=== PATIENT | female | born 1955 | race Caucasian/White ===

== ENCOUNTER 2017-10-10 22:46 | Inpatient (IN) | payer MEDICARE, OTHER ==
[~2017-10-10] VITALS: Ht 157.5 cm; Wt 68.5 kg
[2017-10-11 00:09] LABS: White Blood Cell 12.9 10^3/uL (4.4-10.8)
[2017-10-11 00:10] LABS: Hematocrit 33.9 % (36.0-46.0); Hemoglobin 10.6 g/dL (12.2-16.2); Mean Corpuscular Hemoglobin 25.5 pg (28.0-32.0); Mean Corpuscular Hgb Conc. 31.4 g/dL (32.0-36.0); Mean Corpuscular Volume 81.2 fL (80.0-100.0); Platelet Count (auto) 264 10^3/uL (140-450); Red Blood Cells 4.17 10^6/uL (4.0-5.20)
[2017-10-11 00:18] LABS: Red Cell Distribution Width 20.3 % (11.8-14.3)
[2017-10-11 00:19] LABS: Basophils % (manual) 0 (0.0-2.0); Blast Cells 0; Metamyelocytes % 0; Myelocytes % 0; Promyelocytes % 0; Reactive Lymphocytes 0
[2017-10-11 00:31] LABS: BUN/Creatinine Ratio 7.7; Calcium 8.5 mg/dL (8.5-10.1); Magnesium 2.4 mg/dL (1.6-2.6); Potassium 3.8 mmol/L (3.5-5.1)
[2017-10-11 00:55] LABS: Band Neutrophils % (manual) 2; Eosinophils % (manual) 6 (0-7); Lymphocytes % (manual) 16 (10.0-50.0); Monocytes % (manual) 14 (0-12)
[2017-10-11] MEDS ORDERED: FAMOTIDINE (10MG/ML) 2ML VL IV ONE (01:30)
[2017-10-11] MEDS ORDERED: SODIUM CHLORIDE 0.9% 1,000 ML IV ONE (01:30)
[2017-10-11] MEDS ORDERED: MEPERIDINE HCL (50 MG/ML) 1 ML VIAL IV ONE ×3 (01:30→14:00)
[2017-10-11 03:33] LABS: Urine Bacteria NONE SEEN /hpf (None Seen); Urine Blood 2+ /uL (Negative); Urine Budding Yeast LOADED /hpf (None Seen); Urine Hyaline Cast MOD /lpf (0 - 2); Urine Specific Gravity 1.026 (1.001-1.035); Urine WBC 1839 /hpf (0 - 5); Urine WBC Clumps PRESENT /hpf (None Seen)
[2017-10-11] MEDS ORDERED: MORPHINE SULF(PF) 0.5MG/ML 10ML VIAL IV PRN (09:00)
[2017-10-11] MEDS ORDERED: NITROGLYCERIN 0.4 MG SL TAB SL PRN (09:00)
[2017-10-11] MEDS ORDERED: DEXTROSE (50%) 50ML SYRG IV PRN (10:45)
[2017-10-11] MEDS: InsuLIN REG 1unit/0.01ml Soln (100units/ml) SC SCH ×3 (11:30→21:48)
[2017-10-11] MEDS: ACCU-CHEK COMFORT CURVE STRIP VI SCH ×3 (11:45→21:48)
[2017-10-11] MEDS ORDERED: ONDANSETRON HCL 4 MG/2 ML VIAL ONE (13:43)
[2017-10-11] MEDS ORDERED: ONDANSETRON HCL 4 MG/2 ML VIAL IV ONE (14:00)
[2017-10-11] MEDS: ONDANSETRON HCL 4 MG/2 ML VIAL IV PRN ×2 (16:37→21:49)
[2017-10-11] MEDS: OXYCODONE W/ ACETAMINOPHEN 5/325MG TABLET PO PRN ×2 (16:39→21:49)
[2017-10-11] MEDS: ENOXAPARIN SOD 30 MG/0.3 ML SYRINGE SC SCH (18:18)
[2017-10-11] MEDS: DOCUSATE SOD 100 MG CAP PO SCH (21:48)
[2017-10-11 22:00] VITALS: BP 116/61
[2017-10-11] MEDS ORDERED: POLYETHYLENE GLYCOL 17 GM PWDR PO ONE (22:00)
[2017-10-11] MEDS: ZOLPIDEM TARTRATE 5 MG TAB PO PRN (23:05)
[2017-10-12] MEDS: ONDANSETRON HCL 4 MG/2 ML VIAL IV PRN ×3 (04:12→19:49)
[2017-10-12 05:00] VITALS: BP 150/73
[2017-10-12] MEDS: OXYCODONE W/ ACETAMINOPHEN 5/325MG TABLET PO PRN ×4 (06:17→19:49)
[2017-10-12] MEDS: ACCU-CHEK COMFORT CURVE STRIP VI SCH ×4 (06:17→22:14)
[2017-10-12] MEDS: InsuLIN REG 1unit/0.01ml Soln (100units/ml) SC SCH ×4 (06:17→22:21)
[2017-10-12 09:00] VITALS: BP_SYST 131; BP_SYST 155; BP_DIAS 71; BP_DIAS 97
[2017-10-12] MEDS: DOCUSATE SOD 100 MG CAP PO SCH ×2 (10:52→22:13)
[2017-10-12 13:00] VITALS: BP_SYST 164; BP_SYST 88; BP_DIAS 47; BP_DIAS 72
[2017-10-12] MEDS ORDERED: LEVOFLOXACIN 250MG 50 ML IV SCH (13:30)
[2017-10-12] MEDS ORDERED: LEVOFLOXACIN 250MG 50 ML IV ONE (13:30)
[2017-10-12] MEDS ORDERED: LEVOFLOXACIN 500MG 100 ML IV ONE (14:00)
[2017-10-12] MEDS: B-COMPLEX W/ C & FOLIC ACID(NEPHROVITE TAB) PO SCH (14:27)
[2017-10-12 17:00] VITALS: BP 145/79
[2017-10-12] MEDS: Novasource Renal 8 Ounces PO SCH (19:48)
[2017-10-12] MEDS: ENOXAPARIN SOD 30 MG/0.3 ML SYRINGE SC SCH (19:49)
[2017-10-12 22:00] VITALS: BP 166/74
[2017-10-13] MEDS: ONDANSETRON HCL 4 MG/2 ML VIAL IV PRN ×6 (00:11→22:03)
[2017-10-13] MEDS: OXYCODONE W/ ACETAMINOPHEN 5/325MG TABLET PO PRN ×6 (00:11→22:03)
[2017-10-13] MEDS: ZOLPIDEM TARTRATE 5 MG TAB PO PRN ×2 (00:30→22:02)
[2017-10-13 05:16] VITALS: BP 160/85
[2017-10-13] MEDS: ACCU-CHEK COMFORT CURVE STRIP VI SCH ×4 (07:04→22:02)
[2017-10-13] MEDS: InsuLIN REG 1unit/0.01ml Soln (100units/ml) SC SCH ×5 (07:05→22:14)
[2017-10-13 07:56] LABS: Basophils # (auto) 0 uL; Eosinophils % (auto) 4.2 % (0.0-7.0); Hematocrit 30.2 % (36.0-46.0); Mean Corpuscular Hemoglobin 26.3 pg (28.0-32.0); Monocytes % (auto) 9.3 % (0.0-12.0)
[2017-10-13 07:59] LABS: Basophils % (auto) 0.2 % (0.0-2.0); Eosinophils # (auto) 0.5 uL; Hemoglobin 9.8 g/dL (12.2-16.2); Lymphocytes # (auto) 2.2 uL; Lymphocytes % (auto) 20.2 % (10.0-50.0); Mean Corpuscular Hgb Conc. 32.3 g/dL (32.0-36.0); Mean Corpuscular Volume 81.5 fL (80.0-100.0); Neutrophils # (auto) 7.2 uL; Neutrophils % (auto) 66.1 % (37.0-80.0); Platelet Count (auto) 251 10^3/uL (140-450); Red Blood Cells 3.71 10^6/uL (4.0-5.20); White Blood Cell 10.9 10^3/uL (4.4-10.8)
[2017-10-13 08:06] LABS: Red Cell Distribution Width 20.8 % (11.8-14.3)
[2017-10-13 08:24] LABS: Albumin 2.2 g/dL (3.4-5.0); BUN/Creatinine Ratio 9.8; Bilirubin, Total 0.2 mg/dL (0.2-1.0); Calcium 8.4 mg/dL (8.5-10.1); Potassium 3.7 mmol/L (3.5-5.1); Total Protein 5.7 g/dL (6.4-8.2)
[2017-10-13] MEDS: Novasource Renal 8 Ounces PO SCH ×3 (08:50→18:11)
[2017-10-13 09:00] VITALS: BP 128/74
[2017-10-13] MEDS: LEVOFLOXACIN 250MG 50 ML IV SCH (09:57)
[2017-10-13] MEDS: B-COMPLEX W/ C & FOLIC ACID(NEPHROVITE TAB) PO SCH (09:58)
[2017-10-13] MEDS: DOCUSATE SOD 100 MG CAP PO SCH ×2 (10:00→22:02)
[2017-10-13] MEDS ORDERED: EPOETIN ALFA 3,000 UNIT/1 ML VIAL IV ONE (11:15)
[2017-10-13] MEDS ORDERED: EPOETIN ALFA 2,000 UNIT/1 ML VIAL IV ONE (11:15)
[2017-10-13] MEDS ORDERED: SODIUM CHL 0.9% 1000 ML BAG XX ONE (11:15)
[2017-10-13 13:00] VITALS: BP 119/60
[2017-10-13 16:13] VITALS: BP 133/65
[2017-10-13 17:00] VITALS: BP 102/70
[2017-10-13] MEDS: ENOXAPARIN SOD 30 MG/0.3 ML SYRINGE SC SCH (18:11)
[2017-10-13 22:00] VITALS: BP 124/59
[2017-10-14] MEDS: OXYCODONE W/ ACETAMINOPHEN 5/325MG TABLET PO PRN ×5 (02:12→21:58)
[2017-10-14] MEDS: ONDANSETRON HCL 4 MG/2 ML VIAL IV PRN ×5 (02:12→21:57)
[2017-10-14 05:00] VITALS: BP 136/83
[2017-10-14] MEDS: ACCU-CHEK COMFORT CURVE STRIP VI SCH ×4 (06:02→21:57)
[2017-10-14] MEDS: InsuLIN REG 1unit/0.01ml Soln (100units/ml) SC SCH ×4 (06:11→21:57)
[2017-10-14] MEDS: PRO-STAT 64 30ML PO SCH ×2 (08:00→18:00)
[2017-10-14 09:00] VITALS: BP 132/80
[2017-10-14] MEDS: B-COMPLEX W/ C & FOLIC ACID(NEPHROVITE TAB) PO SCH (09:59)
[2017-10-14] MEDS: Novasource Renal 8 Ounces PO SCH ×3 (10:00→18:31)
[2017-10-14] MEDS: LEVOFLOXACIN 250MG 50 ML IV SCH (10:00)
[2017-10-14] MEDS: DOCUSATE SOD 100 MG CAP PO SCH ×2 (10:01→21:56)
[2017-10-14 13:00] VITALS: BP 112/66
[2017-10-14 17:00] VITALS: BP 127/70
[2017-10-14] MEDS: ENOXAPARIN SOD 30 MG/0.3 ML SYRINGE SC SCH (18:31)
[2017-10-14 21:42] VITALS: BP 137/56
[2017-10-14] MEDS: ZOLPIDEM TARTRATE 5 MG TAB PO PRN (21:58)
[2017-10-15] MEDS: ONDANSETRON HCL 4 MG/2 ML VIAL IV PRN ×4 (02:18→21:35)
[2017-10-15] MEDS: OXYCODONE W/ ACETAMINOPHEN 5/325MG TABLET PO PRN ×4 (02:19→21:35)
[2017-10-15 05:32] VITALS: BP 143/69
[2017-10-15] MEDS: ACCU-CHEK COMFORT CURVE STRIP VI SCH ×4 (06:07→21:34)
[2017-10-15] MEDS: InsuLIN REG 1unit/0.01ml Soln (100units/ml) SC SCH ×4 (06:17→21:34)
[2017-10-15 08:00] VITALS: BP 142/68
[2017-10-15] MEDS: Novasource Renal 8 Ounces PO SCH ×3 (08:17→17:34)
[2017-10-15] MEDS: PRO-STAT 64 30ML PO SCH ×2 (08:18→17:34)
[2017-10-15] MEDS: DOCUSATE SOD 100 MG CAP PO SCH ×2 (10:05→21:33)
[2017-10-15] MEDS: LEVOFLOXACIN 250MG 50 ML IV SCH (10:05)
[2017-10-15] MEDS: MEGESTROL ACETATE 20 MG TAB PO SCH ×2 (10:06→21:34)
[2017-10-15] MEDS: B-COMPLEX W/ C & FOLIC ACID(NEPHROVITE TAB) PO SCH (10:06)
[2017-10-15 12:00] VITALS: BP 118/66
[2017-10-15] MEDS ORDERED: HEPARIN SODIUM (PORCINE) 5000 UNITS/ML 1ML VIAL IV ONE (14:45)
[2017-10-15] MEDS ORDERED: EPOETIN ALFA 2,000 UNIT/1 ML VIAL IV ONE (15:00)
[2017-10-15] MEDS ORDERED: EPOETIN ALFA 3,000 UNIT/1 ML VIAL IV ONE (15:00)
[2017-10-15 17:00] VITALS: BP 146/76
[2017-10-15] MEDS: ENOXAPARIN SOD 30 MG/0.3 ML SYRINGE SC SCH (17:57)
[2017-10-15 18:00] VITALS: BP 146/53
[2017-10-15 22:00] VITALS: BP 104/73
[2017-10-16] MEDS: ONDANSETRON HCL 4 MG/2 ML VIAL IV PRN ×4 (02:11→19:46)
[2017-10-16] MEDS: OXYCODONE W/ ACETAMINOPHEN 5/325MG TABLET PO PRN ×4 (02:11→19:47)
[2017-10-16 05:36] VITALS: BP 146/76
[2017-10-16] MEDS: InsuLIN REG 1unit/0.01ml Soln (100units/ml) SC SCH ×4 (06:19→21:40)
[2017-10-16] MEDS: ACCU-CHEK COMFORT CURVE STRIP VI SCH ×4 (06:19→21:39)
[2017-10-16] MEDS: Novasource Renal 8 Ounces PO SCH ×3 (07:34→18:01)
[2017-10-16] MEDS: PRO-STAT 64 30ML PO SCH ×2 (07:35→18:01)
[2017-10-16 08:38] VITALS: BP 152/76
[2017-10-16] MEDS: B-COMPLEX W/ C & FOLIC ACID(NEPHROVITE TAB) PO SCH (10:28)
[2017-10-16] MEDS: DOCUSATE SOD 100 MG CAP PO SCH ×2 (10:28→21:22)
[2017-10-16] MEDS: LEVOFLOXACIN 250MG 50 ML IV SCH (10:28)
[2017-10-16] MEDS: MEGESTROL ACETATE 20 MG TAB PO SCH ×2 (10:28→21:22)
[2017-10-16] MEDS ORDERED: LEVOFLOXACIN 250MG 50 ML IV ONE (11:18)
[2017-10-16 16:11] VITALS: BP 145/90
[2017-10-16] MEDS: ENOXAPARIN SOD 30 MG/0.3 ML SYRINGE SC SCH (18:01)
[2017-10-16 20:00] VITALS: BP 100/65
[2017-10-16 22:41] VITALS: BP 100/65
[2017-10-17] MEDS: ONDANSETRON HCL 4 MG/2 ML VIAL IV PRN ×3 (04:53→16:14)
[2017-10-17] MEDS: OXYCODONE W/ ACETAMINOPHEN 5/325MG TABLET PO PRN ×2 (04:53→09:35)
[2017-10-17 05:40] VITALS: BP 124/76
[2017-10-17] MEDS: InsuLIN REG 1unit/0.01ml Soln (100units/ml) SC SCH ×4 (05:56→22:00)
[2017-10-17] MEDS: ACCU-CHEK COMFORT CURVE STRIP VI SCH ×4 (05:56→22:18)
[2017-10-17 08:00] VITALS: BP 153/75
[2017-10-17] MEDS: PRO-STAT 64 30ML PO SCH ×2 (08:00→18:00)
[2017-10-17] MEDS: MEGESTROL ACETATE 20 MG TAB PO SCH ×2 (09:36→22:12)
[2017-10-17] MEDS: LEVOFLOXACIN 250MG 50 ML IV SCH (09:36)
[2017-10-17] MEDS: B-COMPLEX W/ C & FOLIC ACID(NEPHROVITE TAB) PO SCH (09:36)
[2017-10-17] MEDS: DOCUSATE SOD 100 MG CAP PO SCH ×2 (09:36→22:00)
[2017-10-17] MEDS: Novasource Renal 8 Ounces PO SCH ×3 (09:37→18:41)
[2017-10-17] MEDS ORDERED: EPOETIN ALFA 2,000 UNIT/1 ML VIAL IV ONE (12:00)
[2017-10-17] MEDS ORDERED: EPOETIN ALFA 3,000 UNIT/1 ML VIAL IV ONE (12:00)
[2017-10-17 13:00] VITALS: BP 169/90
[2017-10-17 16:41] VITALS: BP 190/81
[2017-10-17] MEDS: ENOXAPARIN SOD 30 MG/0.3 ML SYRINGE SC SCH (18:40)
[2017-10-17] MEDS: NIFEdipine ER 30 MG TAB PO ONE ×2 (18:44→18:46)
[2017-10-17 21:46] VITALS: BP 145/59
[2017-10-17 21:58] VITALS: BP 124/44
[2017-10-18] MEDS: OXYCODONE W/ ACETAMINOPHEN 5/325MG TABLET PO PRN ×4 (02:10→21:34)
[2017-10-18 04:51] VITALS: BP 133/68
[2017-10-18] MEDS: ACCU-CHEK COMFORT CURVE STRIP VI SCH ×4 (06:19→21:33)
[2017-10-18] MEDS: InsuLIN REG 1unit/0.01ml Soln (100units/ml) SC SCH ×4 (06:19→21:35)
[2017-10-18 08:00] VITALS: BP 158/66
[2017-10-18] MEDS: PRO-STAT 64 30ML PO SCH ×2 (08:01→18:00)
[2017-10-18] MEDS: Novasource Renal 8 Ounces PO SCH ×3 (08:01→18:00)
[2017-10-18 08:21] VITALS: BP 158/66
[2017-10-18 09:18] LABS: BUN/Creatinine Ratio 13.3; Calcium 8.8 mg/dL (8.5-10.1); Potassium 3.6 mmol/L (3.5-5.1)
[2017-10-18] MEDS: LEVOFLOXACIN 250MG 50 ML IV SCH (10:00)
[2017-10-18] MEDS: DOCUSATE SOD 100 MG CAP PO SCH ×2 (10:08→21:34)
[2017-10-18] MEDS: B-COMPLEX W/ C & FOLIC ACID(NEPHROVITE TAB) PO SCH (10:08)
[2017-10-18] MEDS: MEGESTROL ACETATE 20 MG TAB PO SCH ×2 (10:09→21:34)
[2017-10-18] MEDS: NIFEdipine ER 30 MG TAB PO SCH ×2 (10:09→21:35)
[2017-10-18 12:49] VITALS: BP 156/65
[2017-10-18] MEDS: ONDANSETRON HCL 4 MG/2 ML VIAL IV PRN ×2 (16:07→21:34)
[2017-10-18 16:44] VITALS: BP 130/70
[2017-10-18] MEDS: ENOXAPARIN SOD 30 MG/0.3 ML SYRINGE SC SCH (17:36)
[2017-10-18] MEDS: ZOLPIDEM TARTRATE 5 MG TAB PO PRN (21:34)
[2017-10-18 22:00] VITALS: BP 144/63
[2017-10-19] MEDS: OXYCODONE W/ ACETAMINOPHEN 5/325MG TABLET PO PRN ×5 (01:16→22:11)
[2017-10-19 04:54] VITALS: BP 132/60
[2017-10-19] MEDS: ACCU-CHEK COMFORT CURVE STRIP VI SCH ×4 (06:25→22:08)
[2017-10-19] MEDS: InsuLIN REG 1unit/0.01ml Soln (100units/ml) SC SCH ×4 (06:26→22:10)
[2017-10-19] MEDS: ONDANSETRON HCL 4 MG/2 ML VIAL IV PRN ×4 (06:26→22:11)
[2017-10-19 08:00] VITALS: BP 130/75
[2017-10-19] MEDS: Novasource Renal 8 Ounces PO SCH ×3 (08:22→17:50)
[2017-10-19] MEDS: PRO-STAT 64 30ML PO SCH ×2 (08:22→17:50)
[2017-10-19 09:19] VITALS: BP 130/75
[2017-10-19] MEDS: LEVOFLOXACIN 250MG 50 ML IV SCH (09:39)
[2017-10-19] MEDS: DOCUSATE SOD 100 MG CAP PO SCH ×2 (09:39→22:08)
[2017-10-19] MEDS: MEGESTROL ACETATE 20 MG TAB PO SCH ×2 (09:40→22:08)
[2017-10-19] MEDS: B-COMPLEX W/ C & FOLIC ACID(NEPHROVITE TAB) PO SCH (09:40)
[2017-10-19] MEDS: NIFEdipine ER 30 MG TAB PO SCH ×2 (09:41→22:10)
[2017-10-19 12:30] VITALS: BP 143/65
[2017-10-19 17:00] VITALS: BP 157/84
[2017-10-19] MEDS: ENOXAPARIN SOD 30 MG/0.3 ML SYRINGE SC SCH (17:51)
[2017-10-19 22:07] VITALS: BP 132/74
[2017-10-19] MEDS: ZOLPIDEM TARTRATE 5 MG TAB PO PRN (22:11)
[2017-10-20 04:59] VITALS: BP 130/77
[2017-10-20] MEDS: ACCU-CHEK COMFORT CURVE STRIP VI SCH ×4 (06:09→21:22)
[2017-10-20] MEDS: InsuLIN REG 1unit/0.01ml Soln (100units/ml) SC SCH ×4 (06:10→21:22)
[2017-10-20] MEDS: ONDANSETRON HCL 4 MG/2 ML VIAL IV PRN ×3 (06:10→20:11)
[2017-10-20] MEDS: OXYCODONE W/ ACETAMINOPHEN 5/325MG TABLET PO PRN ×2 (06:10→20:11)
[2017-10-20] MEDS: PRO-STAT 64 30ML PO SCH ×2 (08:00→18:00)
[2017-10-20] MEDS: Novasource Renal 8 Ounces PO SCH ×3 (08:00→19:50)
[2017-10-20 08:30] VITALS: BP 147/68
[2017-10-20] MEDS: B-COMPLEX W/ C & FOLIC ACID(NEPHROVITE TAB) PO SCH (10:08)
[2017-10-20] MEDS: DOCUSATE SOD 100 MG CAP PO SCH ×2 (10:08→21:22)
[2017-10-20] MEDS: NIFEdipine ER 30 MG TAB PO SCH ×2 (10:09→21:23)
[2017-10-20] MEDS: LEVOFLOXACIN 250MG 50 ML IV SCH (10:10)
[2017-10-20] MEDS: MEGESTROL ACETATE 20 MG TAB PO SCH ×2 (10:11→21:22)
[2017-10-20 12:10] VITALS: BP 125/71
[2017-10-20] MEDS: HYDROcodone-ACET 5/325MG TAB PO PRN (14:46)
[2017-10-20 17:12] VITALS: BP 150/71
[2017-10-20] MEDS: ENOXAPARIN SOD 30 MG/0.3 ML SYRINGE SC SCH (19:50)
[2017-10-20] MEDS: ZOLPIDEM TARTRATE 5 MG TAB PO PRN (21:23)
[2017-10-20 22:00] VITALS: BP 133/57
[2017-10-21] MEDS: ONDANSETRON HCL 4 MG/2 ML VIAL IV PRN ×3 (03:26→18:00)
[2017-10-21 05:30] VITALS: BP 136/67
[2017-10-21] MEDS: ACCU-CHEK COMFORT CURVE STRIP VI SCH ×4 (06:31→22:28)
[2017-10-21] MEDS: InsuLIN REG 1unit/0.01ml Soln (100units/ml) SC SCH ×4 (06:33→22:00)
[2017-10-21 08:00] VITALS: BP 142/65
[2017-10-21] MEDS: PRO-STAT 64 30ML PO SCH ×2 (08:00→17:57)
[2017-10-21] MEDS: Novasource Renal 8 Ounces PO SCH ×3 (09:17→17:56)
[2017-10-21] MEDS: B-COMPLEX W/ C & FOLIC ACID(NEPHROVITE TAB) PO SCH (09:18)
[2017-10-21] MEDS: MEGESTROL ACETATE 20 MG TAB PO SCH ×2 (09:18→22:51)
[2017-10-21] MEDS: DOCUSATE SOD 100 MG CAP PO SCH ×2 (09:18→22:51)
[2017-10-21] MEDS: LEVOFLOXACIN 250MG 50 ML IV SCH (09:18)
[2017-10-21] MEDS: NIFEdipine ER 30 MG TAB PO SCH ×2 (09:19→22:52)
[2017-10-21] MEDS: OXYCODONE W/ ACETAMINOPHEN 5/325MG TABLET PO PRN ×2 (09:19→18:00)
[2017-10-21 12:00] VITALS: BP 133/68
[2017-10-21 15:00] VITALS: BP 126/68
[2017-10-21] MEDS: ENOXAPARIN SOD 30 MG/0.3 ML SYRINGE SC SCH (18:00)
[2017-10-21 22:12] VITALS: BP 142/62
[2017-10-21] MEDS: HYDROcodone-ACET 5/325MG TAB PO PRN (22:27)
[2017-10-22] MEDS: ZOLPIDEM TARTRATE 5 MG TAB PO PRN (01:07)
[2017-10-22 05:00] VITALS: BP 123/70
[2017-10-22] MEDS: OXYCODONE W/ ACETAMINOPHEN 5/325MG TABLET PO PRN ×4 (06:15→22:30)
[2017-10-22] MEDS: ACCU-CHEK COMFORT CURVE STRIP VI SCH ×4 (06:43→22:31)
[2017-10-22] MEDS: InsuLIN REG 1unit/0.01ml Soln (100units/ml) SC SCH ×4 (06:43→22:31)
[2017-10-22] MEDS: PRO-STAT 64 30ML PO SCH ×2 (08:00→18:00)
[2017-10-22] MEDS: Novasource Renal 8 Ounces PO SCH ×3 (08:00→18:01)
[2017-10-22 08:39] VITALS: BP 149/56
[2017-10-22] MEDS: MEGESTROL ACETATE 20 MG TAB PO SCH ×2 (09:36→22:30)
[2017-10-22] MEDS: B-COMPLEX W/ C & FOLIC ACID(NEPHROVITE TAB) PO SCH (09:36)
[2017-10-22] MEDS: DOCUSATE SOD 100 MG CAP PO SCH ×2 (09:36→22:30)
[2017-10-22] MEDS: LEVOFLOXACIN 250MG 50 ML IV SCH (09:36)
[2017-10-22] MEDS: ONDANSETRON HCL 4 MG/2 ML VIAL IV PRN ×3 (09:37→22:30)
[2017-10-22] MEDS: NIFEdipine ER 30 MG TAB PO SCH ×2 (09:37→22:31)
[2017-10-22 12:56] VITALS: BP 132/68
[2017-10-22 14:53] LABS: Hemoglobin 8.1 g/dL (12.2-16.2); Mean Corpuscular Hemoglobin 26.8 pg (28.0-32.0); Mean Corpuscular Volume 83.5 fL (80.0-100.0)
[2017-10-22 14:54] LABS: Hematocrit 25.1 % (36.0-46.0); Mean Corpuscular Hgb Conc. 32.2 g/dL (32.0-36.0); Platelet Count (auto) 239 10^3/uL (140-450); White Blood Cell 9.2 10^3/uL (4.4-10.8)
[2017-10-22 15:03] LABS: Basophils % (manual) 0 (0.0-2.0); Blast Cells 0; Metamyelocytes % 0; Promyelocytes % 0; Reactive Lymphocytes 0
[2017-10-22 15:15] LABS: Albumin 1.6 g/dL (3.4-5.0); BUN/Creatinine Ratio 15.2; Calcium 8.5 mg/dL (8.5-10.1)
[2017-10-22 15:17] LABS: Bilirubin, Total 0.1 mg/dL (0.2-1.0); Total Protein 5.6 g/dL (6.4-8.2)
[2017-10-22 16:32] VITALS: BP 111/83
[2017-10-22] MEDS: ENOXAPARIN SOD 30 MG/0.3 ML SYRINGE SC SCH (18:02)
[2017-10-22 18:05] LABS: Band Neutrophils % (manual) 5; Eosinophils % (manual) 2 (0-7); Lymphocytes % (manual) 24 (10.0-50.0); Monocytes % (manual) 4 (0-12); Myelocytes % 2
[2017-10-22 22:00] VITALS: BP 147/51
[2017-10-23] MEDS: OXYCODONE W/ ACETAMINOPHEN 5/325MG TABLET PO PRN ×5 (02:16→21:37)
[2017-10-23] MEDS: ONDANSETRON HCL 4 MG/2 ML VIAL IV PRN ×5 (02:16→21:37)
[2017-10-23 05:00] VITALS: BP 141/65
[2017-10-23] MEDS: ACCU-CHEK COMFORT CURVE STRIP VI SCH ×4 (06:34→21:35)
[2017-10-23] MEDS: InsuLIN REG 1unit/0.01ml Soln (100units/ml) SC SCH ×4 (06:35→21:36)
[2017-10-23] MEDS: PRO-STAT 64 30ML PO SCH ×2 (08:00→18:00)
[2017-10-23 08:45] VITALS: BP 147/66
[2017-10-23] MEDS: LEVOFLOXACIN 250MG 50 ML IV SCH (09:04)
[2017-10-23] MEDS: Novasource Renal 8 Ounces PO SCH ×3 (09:15→18:00)
[2017-10-23] MEDS: B-COMPLEX W/ C & FOLIC ACID(NEPHROVITE TAB) PO SCH (09:16)
[2017-10-23] MEDS: DOCUSATE SOD 100 MG CAP PO SCH ×2 (09:16→21:34)
[2017-10-23] MEDS: MEGESTROL ACETATE 20 MG TAB PO SCH ×2 (09:17→21:34)
[2017-10-23] MEDS: NIFEdipine ER 30 MG TAB PO SCH ×2 (10:00→21:34)
[2017-10-23 12:43] VITALS: BP 155/73
[2017-10-23 16:37] VITALS: BP 162/75
[2017-10-23] MEDS: ENOXAPARIN SOD 30 MG/0.3 ML SYRINGE SC SCH (17:11)
[2017-10-23 22:00] VITALS: BP 143/70
[2017-10-24] MEDS: OXYCODONE W/ ACETAMINOPHEN 5/325MG TABLET PO PRN ×2 (01:32→05:32)
[2017-10-24] MEDS: ONDANSETRON HCL 4 MG/2 ML VIAL IV PRN ×4 (01:32→20:56)
[2017-10-24 05:30] VITALS: BP 155/97
[2017-10-24] MEDS: InsuLIN REG 1unit/0.01ml Soln (100units/ml) SC SCH ×3 (06:06→17:00)
[2017-10-24] MEDS: ACCU-CHEK COMFORT CURVE STRIP VI SCH ×3 (06:06→17:00)
[2017-10-24] MEDS ORDERED: EPOETIN ALFA 3,000 UNIT/1 ML VIAL IV ONE (07:00)
[2017-10-24] MEDS ORDERED: LEVO5TAB2 PO (07:09)
[2017-10-24] MEDS ORDERED: ATOR10TA52 PO (07:09)
[2017-10-24] MEDS ORDERED: AMLO5TAB2 PO (07:09)
[2017-10-24] MEDS ORDERED: MAGN400T5 PO (07:09)
[2017-10-24] MEDS ORDERED: ASPI-231 PO (07:09)
[2017-10-24] MEDS ORDERED: MECL12.554 PO (07:09)
[2017-10-24] MEDS ORDERED: LORA-654 PO (07:09)
[2017-10-24 07:35] VITALS: BP 152/80
[2017-10-24] MEDS: Novasource Renal 8 Ounces PO SCH ×3 (08:00→18:00)
[2017-10-24] MEDS: PRO-STAT 64 30ML PO SCH ×2 (08:00→18:00)
[2017-10-24] MEDS: NIFEdipine ER 30 MG TAB PO SCH (10:00)
[2017-10-24] MEDS: LEVOFLOXACIN 250MG 50 ML IV SCH (11:15)
[2017-10-24] MEDS: DOCUSATE SOD 100 MG CAP PO SCH (11:16)
[2017-10-24] MEDS: B-COMPLEX W/ C & FOLIC ACID(NEPHROVITE TAB) PO SCH (11:16)
[2017-10-24] MEDS: MEGESTROL ACETATE 20 MG TAB PO SCH (11:18)
[2017-10-24 12:00] VITALS: BP 147/73
[2017-10-24 17:00] VITALS: BP 152/96
[2017-10-24] MEDS: ENOXAPARIN SOD 30 MG/0.3 ML SYRINGE SC SCH (18:00)
[2017-10-24 19:05] VITALS: BP 152/96
== END 2017-10-24 22:35 | disposition home health service (06) | DRG 291 ==
LOC: ER 22:46 → TELE 22:47 → TELE-CENTR 10-11 16:23
PROVIDERS: ADMIT Specialist; ATTEND Specialist
PROC: 5A1D70Z Performance of Urinary Filtration, Intermittent, Less than 6 Hours Per Day (ICD-10-PCS; 2017-10-13)
PROC: 5A1D70Z Performance of Urinary Filtration, Intermittent, Less than 6 Hours Per Day (ICD-10-PCS; 2017-10-15)
PROC: 5A1D70Z Performance of Urinary Filtration, Intermittent, Less than 6 Hours Per Day (ICD-10-PCS; 2017-10-17)
PROC: 5A1D70Z Performance of Urinary Filtration, Intermittent, Less than 6 Hours Per Day (ICD-10-PCS; principal; 2017-10-21)
PROC: 5A1D70Z Performance of Urinary Filtration, Intermittent, Less than 6 Hours Per Day (ICD-10-PCS; 2017-10-24)
DX: I13.2 Hypertensive heart and chronic kidney disease with heart failure and with stage 5 chronic kidney disease, or end stage renal disease (principal); N18.6 End stage renal disease; E87.1 Hypo-osmolality and hyponatremia; N17.9 Acute kidney failure, unspecified; N39.0 Urinary tract infection, site not specified; I50.30 Unspecified diastolic (congestive) heart failure; G81.94 Hemiplegia, unspecified affecting left nondominant side; K52.9 Noninfective gastroenteritis and colitis, unspecified; E11.65 Type 2 diabetes mellitus with hyperglycemia; E11.22 Type 2 diabetes mellitus with diabetic chronic kidney disease; E27.8 Other specified disorders of adrenal gland; F32.9 Major depressive disorder, single episode, unspecified; M19.90 Unspecified osteoarthritis, unspecified site; E78.00 Pure hypercholesterolemia, unspecified; J44.9 Chronic obstructive pulmonary disease, unspecified; K57.30 Diverticulosis of large intestine without perforation or abscess without bleeding; M06.9 Rheumatoid arthritis, unspecified; Z74.01 Bed confinement status; Z79.4 Long term (current) use of insulin; Z82.49 Family history of ischemic heart disease and other diseases of the circulatory system; Z99.2 Dependence on renal dialysis; Z90.49 Acquired absence of other specified parts of digestive tract; Z90.710 Acquired absence of both cervix and uterus; Z88.5 Allergy status to narcotic agent; Z88.8 Allergy status to other drugs, medicaments and biological substances; Z79.899 Other long term (current) drug therapy; Z91.041 Radiographic dye allergy status
CPT/HCPCS: 36415; 71045; 74176; 80048; 80053; 81001; 82150; 82962; 83690; 83735; 83880; 84484; 85007; 85025; 85027; 87081; 87086; 90935; 93005; 93970; 96361; 96374; 96375; 97110; 97163; J1642; J1815; J1956; J2405; J3490; Q4081